=== PATIENT | female | born 1960 | race Asian ===

== ENCOUNTER 2017-04-21 11:54 | Emergency (ER) | payer BC ==
[~2017-04-21] VITALS: Ht 149.9 cm; Wt 50.3 kg
[2017-04-21 12:00] VITALS: BP 132/87
[2017-04-21] MEDS ORDERED: methylPREDNISolone SOD SUCC 125 MG/2 ML VL IM ONE (12:30)
== END 2017-04-21 12:53 | disposition home or self-care (01) ==
LOC: ER 11:58
DX: T78.40XA Allergy, unspecified, initial encounter (principal); I10 Essential (primary) hypertension; M32.9 Systemic lupus erythematosus, unspecified
CPT/HCPCS: 96372; 99283; J2930